=== PATIENT | male | born 1965 | race Caucasian/White ===

== ENCOUNTER 2016-09-01 07:55 | Emergency (ER) | payer OTHER ==
--- NOTE | ~2016-09-01 | CT4 ---
[facility] A Service of [facility] & [facility] RADIOLOGY TEXT RESULTS PATIENT: KRISSY MARIE LOCATION: SED : 65 UNIT #: [id number] AGE: [address]: Josse Drummond MD SEX: M ORDER DR: [id number] [address] [id number] MR#: [id number] #: [id number] NAME: KRISSY MARIE. : 1965 SEX: M STUDY DATE/TIME: 09/01/2016 09:08 UNIT: SED ROOM: STUDY DESCRIPTION: CT Abd and Pelv Wo Cont Attending Physician: Josse Drummond M.D. Ordering Physician: Josse Drummond M.D. Primary Care Physician: Jona Parsons M.D. MEDICAL IMAGING REPORT This report is preliminary unless electronic signature is present. EXAM CT abdomen and pelvis without contrast, 09/01/2016 09:08 hours HISTORY 51-year-old man with right flank pain and right lower quadrant pain with sudden onset at 03:00 hours today. Patient complains of nausea, diarrhea and hematuria today. COMPARISON None TECHNIQUE Helical noncontrasted images were obtained from the lung bases through the pubic symphysis without oral or intravenous contrast. Sagittal and coronal reconstructions were performed. Total exam DLP 714 mGy-cm. This CT exam was performed with one or more of the following radiation dose reduction techniques: automatic exposure control, adjustment of mA and/or kV according to patient size, and iterative reconstruction. FINDINGS Images through the lung bases demonstrate mild subpleural interstitial thickening right greater than left lung base. There is no nodule or effusion. The distal esophagus is normal. Noncontrasted images through the abdomen demonstrate a small cyst in the medial segment left lobe of the liver measuring 1.1 cm. There is a tiny cyst in the right lobe of the liver more inferiorly. There is no suspicious liver lesion. The spleen, pancreas, bile ducts are normal. Suspect either sludge or dependent tiny stones in the gallbladder. There is no gallbladder wall thickening. The adrenal glands are normal. The left kidney is normal in appearance. There is no renal or ureteral calculus. [facility] A Service of [facility] & [facility] RADIOLOGY TEXT RESULTS PATIENT: KRISSY MARIE LOCATION: SED : 65 UNIT #: [id number] AGE: [address]: Josse Drummond MD SEX: M ORDER DR: The right kidney demonstrates moderate pelvocaliectasis and ureterectasis with stranding around the kidney and renal pelvis and upper ureter to the level of a small obstructing stone best seen on image 79 measuring 3.0 mm. This is located at the level of the L4-5 disc space. The distal right ureter is decompressed. The bladder is normal. The stomach is normal. Small bowel is unremarkable. The appendix is seen and normal. There is no colonic wall thickening. CT pelvis is negative. IMPRESSION 1. There is a 3.0 mm right mid ureteral stone at the level of the L4-5 disc space resulting in moderately high-grade obstruction with pelvocaliectasis and ureterectasis and stranding around the kidney, renal pelvis and upper ureter. The distal right ureter is normal. The left kidney and left ureter are normal. 2. Normal appendix. 3. Degenerative disc disease L5-S1 appears chronic. Dictated by... Dana Swanson M.D. THIS IS AN ELECTRONICALLY VERIFIED REPORT Dana Swanson M.D. at 09/01/2016 2:33 PM [place] TD: 09/01/2016 12:21 JOB #: [id number] MEDICAL IMAGING REPORT Page 1 of 1
[~2016-09-01 07:55] MED LIST: ALEVE220 M1 PO; CYMBALTA30 MG PO; DULOXETINE HCL60 MG PO; OXYCONTIN20 MG PO; PERCOCET PO
[2016-09-01] MEDS ORDERED: NO MEDICATIONS (08:01)
[2016-09-01 08:31] LABS: URINE APPEARANCE CLOUDY; URINE BLOOD 3+ (NEG); URINE GLUCOSE NEG (NORM); URINE KETONE 1+ (NEG); URINE NITRATE NEG (NEG); URINE PH 5.5 (5-8); URINE PROTEIN 1+ (NEG); URINE SPECIFIC GRAVITY >=1.030 (1.003-1.035); URINE UROBILINOGEN 0.2 MG/DL (NORM)
[2016-09-01 08:34] LABS: BASOPHIL% 0.2 % (0-2.5); EOSINOPHIL% 0.1 % (0.0-7.0); HEMATOCRIT 45.7 % (38.0-50.0); HEMOGLOBIN 15.7 gm/dL (13.0-16.0); LYMPHOCYTE# 0.9 X10e3 (1.0-3.5); LYMPHOCYTE% 10.4 % (17.0-45.0); MEAN CELL VOLUME 91.3 FL (83-96); MEAN CORPUSCULAR HEMOGLOBIN 31.3 PG (28-34); MEAN CORPUSCULAR HGB CONC 34.3 g/dL (30-36); MEAN PLATELET VOLUME 7.6 FL (6.5-11.5); MICRO INDICATED? YES; MONOCYTE# 0.3 X10e3 (0-1.0); NEUTROPHIL# 7.4 X10e3 (1.5-7.1); NEUTROPHIL% 85.3 % (40-75); PLATELET COUNT 227 X10e3 (140-420); RED CELL DISTRIBUTION WIDTH 13.6 % (11.0-15.5); URINE SOURCE CLEAN CATCH; WHITE BLOOD COUNT 8.7 X10e3 (4.0-10.5)
[2016-09-01 08:35] LABS: URINE BILIRUBIN NEG (NEG); URINE COLOR BROWN
[2016-09-01 08:36] LABS: URINE LEUKOCYTE ESTERASE TRACE (NEG); URINE RBC INNUM /[HPF] (0-2)
[2016-09-01 08:38] LABS: CULTURE INDICATED? YES; URINE AMORPHOUS SEDIMENT AMORP URATES; URINE BACTERIA 1+ (NEG); URINE CRYSTALS CALCIUM OXALATE /[HPF]; URINE MUCUS PRESENT; URINE YEAST PRESENT
[2016-09-01 08:40] LABS: DIFF IND NO
[2016-09-01 08:53] LABS: BUN/CREATININE RATIO 16.25; CALCIUM SERUM 8.5 mg/dL (8.4-10.2); CREATININE SERUM 0.8 mg/dL (0.6-1.4); GLOM FILT RATE Estimated 103.5 mL/min (>60); POTASSIUM 3.2 mmol/L (3.5-5.1)
[2016-09-02 11:56] LABS: POC - CKMB <1.0 ng/mL (0.0-7.9); POC - TROPONIN <0.05 ng/mL (<=0.05)
== END 2016-09-01 10:47 | disposition home or self-care (01) ==
LOC: SED 07:55
PROVIDERS: Emergency Medicine
DX: N20.1 Calculus of ureter (principal); F17.200 Nicotine dependence, unspecified, uncomplicated
CPT/HCPCS: 74176; 80048; 81003; 82553; 84484; 85025; 87086; 96374; 96375; 96376; 99284; J1170; J1885; J2405